=== PATIENT | female | born 1965 | race Caucasian/White ===

== ENCOUNTER 2017-09-18 14:10 | Emergency (ER) | payer BC ==
[~2017-09-18] VITALS: Ht 157.5 cm; Wt 58.5 kg
[2017-09-18 15:10] VITALS: BP 133/83
--- NOTE | 2017-09-18 15:12 | NUR ---
Patient discharged to home in stable condition. Written and verbal after care instructions given. Patient verbalizes understanding of instruction.
== END 2017-09-18 15:12 | disposition home or self-care (01) ==
LOC: ER 14:12
DX: S20.212A Contusion of left front wall of thorax, initial encounter (principal); I10 Essential (primary) hypertension; V43.52XA Car driver injured in collision with other type car in traffic accident, initial encounter; Y93.89 Activity, other specified; Y92.413 State road as the place of occurrence of the external cause; Y99.8 Other external cause status
CPT/HCPCS: 71020; 93005; 99284; A4606; Z7610

== ENCOUNTER 2021-09-25 16:17 | Emergency (ER) | payer BC ==
[~2021-09-25] VITALS: Ht 157.5 cm; Wt 57.2 kg
--- NOTE | 2021-09-25 16:17 | NUR ---
[id number] C/O REDNESS ON UPPER EXTREMITIES S/P FALLING ON BUSHES WHILE WALKING OUTSIDE. VITALS ARE WITHIN NORMAL LIMITS. BREATHING IS REGULAR AND UNLABORED. PT SENT TO ER BED 12 AND ATTACHED TO MONITOR.
[2021-09-25] MEDS ORDERED: diphenhydrAMINE HCL 50 MG/ML VIAL ONE (16:31)
[2021-09-25] MEDS ORDERED: DEXAMETHASONE SOD PHOSPHATE 10 MG/ML VIAL ONE (16:38)
[2021-09-25] MEDS ORDERED: FAMOTIDINE/PF INJ 20 MG/2 ML VIAL IV ONE ×2 (16:38→17:00)
[2021-09-25] MEDS ORDERED: ONDANSETRON HCL/PF 4 MG/2 ML VIAL ONE (16:40)
[2021-09-25] MEDS ORDERED: ALBUTEROL FS 2.5 MG/3 ML VIAL.NEB ONE (16:47)
--- NOTE | 2021-09-25 16:48 | NUR ---
RT AT BEDSIDE
[2021-09-25] MEDS ORDERED: ONDANSETRON 4 MG TAB.RAPDIS PO ONE (17:00)
[2021-09-25] MEDS ORDERED: DEXAMETHASONE SOD PHOSPHATE 10 MG/ML VIAL IV ONE (17:00)
[2021-09-25] MEDS ORDERED: IV NS 0.9% 1,000 ML BAG IV ONE (17:00)
[2021-09-25] MEDS ORDERED: ALBUTEROL FS 2.5 MG/3 ML VIAL.NEB NEB ONE (17:00)
[2021-09-25 17:30] LABS: BASOPHILS # (AUTO) 0.1 K/uL (0.0-0.2); BASOPHILS % (AUTO) 0.6 % (0.0-2.0); EOSINOPHILS % (AUTO) 0.9 % (0.0-6.0); HEMATOCRIT 41 % (33-45); HEMOGLOBIN 13.7 g/dL (11.5-14.8); LYMPHOCYTES # (AUTO) 3.6 K/uL (0.8-4.8); LYMPHOCYTES % (AUTO) 35.7 % (20.0-44.0); MEAN CORPUSCULAR HGB CONC 33 g/dl (31.0-36.0); MEAN CORPUSCULAR VOLUME 84 fL (82-100); MONOCYTES # (AUTO) 0.6 K/uL (0.1-1.30); MONOCYTES % (AUTO) 5.5 % (2.0-12.0); NEUTROPHILS # (AUTO) 5.7 K/uL (1.8-8.9); NEUTROPHILS % (AUTO) 57.3 % (43.0-81.0); PLATELET COUNT (AUTO) 418 K/uL (150-450); RED BLOOD CELL COUNT(AUTO) 4.89 MIL/uL (4.0-5.2)
[2021-09-25 17:39] LABS: CALCIUM, SERUM 8.6 mg/dL (8.5-10.1)
[2021-09-25 17:50] LABS: POTASSIUM 2.5 mmol/L (3.5-5.1)
[2021-09-25] MEDS ORDERED: Magnesium 1GM/D5W 100ML PREMIX 200 ML IV ONE (17:59)
[2021-09-25] MEDS: Magnesium 1GM/D5W 100ML PREMIX 100 ML IV SCH ×2 (18:00→19:01)
[2021-09-25] MEDS ORDERED: POTASSIUM CHLORIDE 20 MEQ TAB.PRT.SR PO ONE ×2 (18:00→18:13)
[2021-09-25] MEDS: POTASSIUM CL. PREMIX PERIPHER. 50 ML IV SCH ×2 (18:00→19:01)
[2021-09-25] MEDS ORDERED: POTASSIUM CL. PREMIX PERIPHER. 100 ML ONE (18:12)
[2021-09-25] MEDS ORDERED: PRED20TA PO (19:36)
[2021-09-25] MEDS ORDERED: EPIN0.3A4 IM (19:36)
--- NOTE | 2021-09-25 19:45 | NUR ---
IV removed. Catheter intact and site benign. Pressure and 4x4 applied to site. No bleeding noted.Patient discharged to home in stable condition. Written and verbal after care instructions given. Patient verbalizes understanding of instruction.
[2021-09-25 19:47] VITALS: BP 135/88
== END 2021-09-25 19:48 | disposition home or self-care (01) ==
LOC: ER 16:30
DX: T78.40XA Allergy, unspecified, initial encounter (principal); E87.6 Hypokalemia; I10 Essential (primary) hypertension; Z88.2 Allergy status to sulfonamides; Z88.1 Allergy status to other antibiotic agents; X58.XXXA Exposure to other specified factors, initial encounter
CPT/HCPCS: 36415; 80048; 85025; 94640 ×2; 96361; 96365; 96366; 96368; 96375; 99285; J1100; J2405; J3475; J3480; J3490; J7030; J1200